=== PATIENT | female | born 1965 | race African-American/Black ===

== ENCOUNTER 2017-11-07 12:54 | Inpatient (IN) | payer OTHER ==
[2017-11-07 15:48] VITALS: BMI 21.1
--- NOTE | 2017-11-07 17:50 | HP ---
COWS - Scale Resting Pulse: 0= [place] 80 or Below Sweatin= Chills/Flushing Restless Observation: 3= Extraneous Movement Pupil Size: 0= Normal to Room Light Bone or Joint Aches: 1= Mild Discomfort Runny Nose/ Eye Tearin= Constantly Teary/Runny GI Upset > 30mins: 2= Nausea/Diarrhea Tremor Observation: 2= Slight Tremor Visible Yawning Observation: 0= None Anxiety or Irritability: 2=Irritable/Anxious Goose Flesh Skin: 0=Smooth Skin COWS Score: 15 Admission ROS BHS - HPI Chief Complaint: withdrawal symptoms, "I don't feel well, I want to go to rehab and detox". Allergies/Adverse Reactions: Allergies Allergy/AdvReac Type Severity Reaction Status Date / Time Penicillins Allergy Severe Difficulty Verified 11/07/17 17:34 Breathing History of Present Illness: 52 yo female with hx IV heroin, nicotine, and cocaine dependence is here seeking detox. PMHX: HIV+ reports adherence with HARRT therapy, hx of seizures was on medication which were discontinue a year ago. Denies suicidal / homicidal ideation, reports hx suicide attempt 7 years ago by drinking pills. Reports hx of OD x , March 2017. Longest period sobriety 18 months. Last detox [facility] Jun 2016, last rehab [facility] June 2016. Exam Limitations: No Limitations - Ebola screening Have you traveled outside of the country in the last 21 days: No Have you had contact with anyone from an Ebola affected area: No Have you been sick,other than usual withdrawal symptoms: No - Review of Systems Constitutional: Chills, Loss of Appetite, Changes in sleep, Weakness, Unintentional Wgt. Loss (18 lbs over the past three months) EENT: reports: See HPI, Nose Congestion Respiratory: reports: No Symptoms reported Cardiac: reports: No Symptoms Reported GI: reports: Nausea, Poor Appetite, Poor Fluid Intake, Abdominal cramping : reports: No Symptoms Reported Musculoskeletal: reports: Muscle Pain (both lower extremties) Integumentary: reports: No Symptoms Reported Neuro: reports: Numbness (b/t hands), Tingling Endocrine: reports: Unexplained Weight Loss Hematology: reports: Anemia Psychiatric: reports: Orientated x3, Anxious Other Systems: Reviewed and Negative Patient History - Patient Medical History Hx Anemia: Yes (NO MEDS) Hx Asthma: Yes Hx Chronic Obstructive Pulmonary Disease (COPD): No Hx Cancer: No Hx Cardiac Disorders: No Hx Congestive Heart Failure: No Hx Hypertension: No Hx Hypercholesterolemia: No Hx Pacemaker: No HX Cerebrovascular Accident: No Hx Seizures: Yes (hx of seizure disorder last more than a year ago.) Hx Dementia: No Hx Diabetes: No Hx Gastrointestinal Disorders: No Hx Liver Disease: Yes (Hep C, tx with [place] ) Hx Genitourinary Disorders: No Hx Sexually Transmitted Disorders: No Hx Renal Disease (ESRD): No Hx Thyroid Disease: No Hx Human Immunodeficiency Virus (HIV): Yes (SINCE 2013;ON REYATAZ/DISCOVY/ NORVIR DAILY) Hx Hepatitis C: Yes (COMPLETED HAVONI [place]) Hx Depression: Yes Hx Suicide Attempt: Yes (Tried to overdose in 2010) Hx Bipolar Disorder: No Hx Schizophrenia: No - Patient Surgical History Past Surgical History: Yes Other Surgical History: RIGHT ARM DUE TO ABCESS Anesthesia Reaction: No - PPD History Previous Implant?: Yes Documented Results: Negative w/o proof Implanted On Prior [facility] Admission?: Yes Results: TO BE DONE PPD to be Administered?: Yes - Reproductive History Patient is a Female of Child Bearing Age (11 -55 yrs old): No Last Menstrual Period: 10/30/17 Patient : No - Smoking Cessation Smoking history: Current every day smoker Have you smoked in the past 12 months: Yes Aproximately how many cigarettes per day: 10 Hx Chewing Tobacco Use: No Initiated information on smoking cessation: Yes 'Breaking Loose' booklet given: 11/07/17 - Substance & Tx. History Hx Alcohol Use: No Hx Substance Use: Yes Substance Use Type: Cocaine, Heroin Hx Substance Use Treatment: Yes - Substances Abused Heroin Route: Injection Frequency: Daily Amount used: 5 bags Age of first use: 26 Date of Last Use: 11/07/17 Cocaine Route: Smoking Frequency: Daily Amount used: $20 Age of first use: 26 Date of Last Use: 11/06/17 Family Disease History - Family Disease History Family Disease History: Diabetes: Mother (HTN), Other: Father (HTN-), Mother Admission Physical Exam BHS - Vital Signs Vital Signs: Vital Signs - 24 hr 11/07/17 15:42 Pulse Rate 78 Respiratory 16 Rate Blood Pressure 123/74 - Physical General Appearance: Yes: Appropriately Dressed, Mild Distress, Thin, Sweating, Anxious HEENTM: Yes: Hearing grossly Normal, Normal ENT Inspection, Normocephalic, Normal Voice, EULALIO, Pharynx Normal, Rhinorrhea Respiratory: Yes: Chest Non-Tender, Lungs Clear, Normal Breath Sounds, No Respiratory Distress, No Accessory Muscle Use Neck: Yes: No masses,lesions,Nodules, Trachea in good position Breast: Yes: Breast Exam Deferred Cardiology: Yes: Regular Rhythm, Regular Rate Abdominal: Yes: Normal Bowel Sounds, Non Tender, Flat, Soft Genitourinary: Yes: Within Normal Limits Back: Yes: Normal Inspection Musculoskeletal: Yes: Muscle Pain (b/t lower extremties) Extremities: Yes: Normal Capillary Refill, Normal Inspection, Normal Range of Motion, Non-Tender Neurological: Yes: boiler welder II-XII NML intact, Fully Oriented, Alert, Motor Strength 5/5, Normal Response, Depressed Affect Integumentary: Yes: Normal Color, Dry, Warm, Other (poor skin turgor) Lymphatic: Yes: Within Normal Limits - Diagnostic (1) History of seizure Current Visit: Yes Status: Chronic (2) Abdominal cramping Current Visit: Yes Status: Acute (3) Dehydration Current Visit: Yes Status: Acute (4) Weight loss Current Visit: Yes Status: Acute (5) Asthma Current Visit: Yes Status: Chronic Qualifiers: Asthma severity: mild Asthma complication type: uncomplicated (6) Cocaine dependence, uncomplicated Current Visit: Yes Status: Chronic (7) HIV (human immunodeficiency virus infection) Current Visit: Yes Status: Chronic (8) Opioid dependence with withdrawal Current Visit: Yes Status: Acute (9) History of anemia Current Visit: Yes Status: Suspected (10) IV drug abuse Current Visit: Yes Status: Chronic Cleared for Admission [facility] - Detox or Rehab [facility] Level of Care: Medically Managed Detox Regimen/Protocol: Methadone [facility] Breath Alcohol Content Breath Alcohol Content: 0 Urine Pregancy Test - Result Urine Test Results: Negative- NO Line Present Urine Drug Screen - Results Drug Screen Negative: No Urine Drug Screen Results: TOREY-Cocaine, AMP-Amphetamines, OXY-Oxycodone
[2017-11-07] MEDS ORDERED: MENTHOL/PHENOL 1 EACH UD MM PRN (17:56)
[2017-11-07] MEDS ORDERED: NICOTINE POLACRILEX 2 MG GUM BC PRN (17:56)
[2017-11-07] MEDS ORDERED: MAG HYDROX/AL HYDROX/SIMETH 30 ML UNIT-DOSE CUP PO PRN (17:56)
[2017-11-07] MEDS ORDERED: MAGNESIUM HYDROX 2400MG/30ML ORAL SUSPENSION 30 ML CUP PO PRN (17:56)
[2017-11-07] MEDS ORDERED: guaiFENesin/D-METHORPHAN HB 10 ML UNIT-DOSE CUPS PO PRN (17:56)
[2017-11-07] MEDS ORDERED: ACETAMINOPHEN 325 MG TABLET (FP) PO PRN (17:56)
[2017-11-07] MEDS ORDERED: MAGNESIUM CITRATE 300 ML BOTTLE PO PRN (17:56)
[2017-11-07] MEDS ORDERED: P-EPHED 60MG/TRIPROLIDI 2.5MG TABLET PO PRN (17:56)
[2017-11-07] MEDS ORDERED: ALBUTEROL SO4 18 GM HFA INHALER IH PRN (17:59)
[2017-11-07] MEDS ORDERED: METHADONE HCL 10 MG TABLET (FOR DETOX USE ONLY) PO ONE ×2 (18:30→23:00)
[2017-11-07] MEDS: diazePAM 5 MG TABLET PO PRN (21:36)
[2017-11-07] MEDS: THIAMINE HCL 100 MG TABLET (FP) PO SCH (21:41)
[2017-11-07 22:59] LABS: URINE APPEARANCE CLEAR; URINE BILIRUBIN NEGATIVE (NEGATIVE); URINE BLOOD NEGATIVE (NEGATIVE); URINE COLOR LTYELLOW; URINE GLUCOSE (UA) NEGATIVE (NEGATIVE); URINE KETONE NEGATIVE (NEGATIVE); URINE LEUK ESTERASE NEGATIVE (NEGATIVE); URINE NITRITE NEGATIVE (NEGATIVE); URINE PROTEIN 1+ (NEGATIVE); URINE UROBILINOGEN NEGATIVE mg/dL (0.2-1.0)
[2017-11-07 23:03] LABS: EPI CELLS RARE /HPF (FEW); URINE BACTERIA RARE /hpf (NONE SEEN)
[2017-11-08] MEDS: EMTRICITABINE/TENOFOV ALAFENAM (DESCOVY) TABLET PO SCH (08:57)
[2017-11-08] MEDS: RITONAVIR 100 MG TABLET PO SCH (08:57)
[2017-11-08] MEDS: ATAZANAVIR SO4 300 MG CAPSULE PO SCH (08:57)
[2017-11-08] MEDS ORDERED: METHADONE HCL 10 MG TABLET (FOR DETOX USE ONLY) PO ONE (10:00)
[2017-11-08] MEDS: PRENATAL VITAMINS W/ FOLIC ACID TABLET (FP) PO SCH (10:26)
[2017-11-08] MEDS: NICOTINE 14 MG/24 HOURS TOPICAL PATCH TD SCH (10:26)
[2017-11-08 10:34] LABS: HEMATOCRIT 38.8 % (32.4-45.2); HEMOGLOBIN 13.5 GM/dL (10.7-15.3); MCH 27.4 pg (25.7-33.7); MCHC 34.8 g/dl (32.0-36.0); MEAN CELL VOLUME 78.6 fl (80-96); PLATELET COUNT 227 K/MM3 (134-434); RBC 4.93 M/mm3 (3.60-5.2); WHITE BLOOD COUNT 7.6 K/mm3 (4.0-10.0)
[2017-11-08 10:40] LABS: ALBUMIN 3.9 g/dl (3.4-5.0); ANION GAP 7 (8-16); BLOOD UREA NITROGEN 16 mg/dL (7-18); CALCIUM 8.7 mg/dL (8.5-10.1); CHLORIDE 107 mmol/L (98-107); CO2 25 mmol/L (21-32); GLUCOSE,RANDOM 68 mg/dL (74-106); POTASSIUM 3.9 mmol/L (3.5-5.1); SGPT/ALT 15 U/L (12-78); SODIUM 139 mmol/L (136-145)
[2017-11-08 10:44] LABS: ALK PHOS 94 U/L (45-117); BILIRUBIN,TOTAL 2.3 mg/dL (0.2-1.0); SGOT/AST 19 U/L (15-37); TOT PROT 8.7 g/dl (6.4-8.2)
--- NOTE | 2017-11-08 16:55 | PN ---
[facility] CIWA - CIWA Score Nausea/Vomitin Muscle Tremors: 3 Anxiety: 3 Agitation: 3 Paroxysmal Sweats: 3 Orientation: 0-Oriented Tacttile Disturbances: 0-None Auditory Disturbances: 0-None Visual Disturbances: 0-None Headache: 0-None Present CIWA-Ar Total Score: 15 S Progress Note (SOAP) Subjective: sweats shakes sleep disturbance Objective: 11/08/17 16:53 A & O x 3 no acute distress Vital Signs Temperature 98.2 F 11/08/17 14:34 Pulse Rate 68 11/08/17 14:34 Respiratory Rate 18 11/08/17 14:34 Blood Pressure 108/69 11/08/17 14:34 O2 Sat by Pulse Oximetry (%) Laboratory Last Values WBC 7.6 K/mm3 (4.0-10.0) 11/08/17 08:00 RBC 4.93 M/mm3 (3.60-5.2) 11/08/17 08:00 Hgb 13.5 GM/dL (10.7-15.3) 11/08/17 08:00 Hct 38.8 % (32.4-45.2) 11/08/17 08:00 MCV 78.6 fl (80-96) L 11/08/17 08:00 MCH 27.4 pg (25.7-33.7) 11/08/17 08:00 MCHC 34.8 g/dl (32.0-36.0) 11/08/17 08:00 RDW 17.0 % (11.6-15.6) H 11/08/17 08:00 Plt Count 227 K/MM3 (134-434) D 11/08/17 08:00 MPV 10.0 fl (7.5-11.1) 11/08/17 08:00 Sodium 139 mmol/L (136-145) 11/08/17 08:00 Potassium 3.9 mmol/L (3.5-5.1) 11/08/17 08:00 Chloride 107 mmol/L (98-107) 11/08/17 08:00 Carbon Dioxide 25 mmol/L (21-32) 11/08/17 08:00 Anion Gap 7 (8-16) L 11/08/17 08:00 BUN 16 mg/dL (7-18) 11/08/17 08:00 Creatinine 1.0 mg/dL (0.55-1.02) 11/08/17 08:00 Creat Clearance w eGFR 58.22 (>60) 11/08/17 08:00 Random Glucose 68 mg/dL (74-106) L 11/08/17 08:00 Calcium 8.7 mg/dL (8.5-10.1) 11/08/17 08:00 Total Bilirubin 2.3 mg/dL (0.2-1.0) H D 11/08/17 08:00 AST 19 U/L (15-37) 11/08/17 08:00 ALT 15 U/L (12-78) 11/08/17 08:00 Alkaline Phosphatase 94 U/L (45-117) 11/08/17 08:00 Total Protein 8.7 g/dl (6.4-8.2) H 11/08/17 08:00 Albumin 3.9 g/dl (3.4-5.0) 11/08/17 08:00 Urine Color Ltyellow 11/07/17 22:50 Urine Appearance Clear 11/07/17 22:50 Urine pH 5.0 (5.0-8.0) D 11/07/17 22:50 Ur Specific [place] 1.015 (1.001-1.035) 11/07/17 22:50 Urine Protein 1+ (NEGATIVE) H 11/07/17 22:50 Urine Glucose (UA) Negative (NEGATIVE) 11/07/17 22:50 Urine Ketones Negative (NEGATIVE) 11/07/17 22:50 Urine Blood Negative (NEGATIVE) 11/07/17 22:50 Urine Nitrite Negative (NEGATIVE) 11/07/17 22:50 Urine Bilirubin Negative (NEGATIVE) 11/07/17 22:50 Urine Urobilinogen Negative mg/dL (0.2-1.0) 11/07/17 22:50 Ur Leukocyte Esterase Negative (NEGATIVE) 11/07/17 22:50 Urine WBC (Auto) 1 /hpf (3-5) 11/07/17 22:50 Urine RBC (Auto) <1 /hpf (0-3) 11/07/17 22:50 Ur Epithelial Cells Rare /HPF (FEW) 11/07/17 22:50 Urine Bacteria Rare /hpf (NONE SEEN) 03/09/18 22:50 RPR Titer Nonreactive (NONREACTIVE) 11/08/17 08:00 labs noted Assessment: 11/08/17 16:54 withdrawal sx Plan: continue detox
--- NOTE | 2017-11-08 17:02 | CONSULT ---
[facility] Psychiatric Consult - Data Date of interview: 11/08/17 Admission source: [facility] Identifying data: Readmission to [facility] for this 52 y/o AA female seeking detox treatment on for cocaine and heroin dependence.Patient is single, a mother of three,homeless,unemployed and deprived of income (supported by relatives). Substance Abuse History: Discussed with patient in this interview.Ms Hinds admits todaily use of cocaine and heroin.Years of abuse as accurately detailed in the current [facility] report : Smoking history: Current every day smoker. Have you smoked in the past 12 months: Yes. Aproximately how many cigarettes per day : 10. Hx Chewing Tobacco Use: No. Initiated information on smoking cessation: Yes. 'Breaking Loose' booklet given: 11/07/17. - Substance & Tx. History. Hx Alcohol Use: No. Hx Substance Use: Yes. Substance Use Type: Cocaine, Heroin. Hx Substance Use Treatment: Yes. - Substances Abused. Heroin. Route: Injection. Frequency: Daily. Amount used: 5 bags. Age of first use: 26. Date of Last Use: 11/07/17. Cocaine. Route: Smoking. Frequency: Daily. Amount used: $20. Age of first use: 26. Date of Last Use: 11/06/17 Medical History: Anemia,bronchial asthma,antecedent of withdrawal-related seizures,hepatitis C and HIV infection since 2013 (on ART medications). Psychiatric History: Onset of psychiaric disturbances ((age 15) : auditory / visual hallucinations and behavioral dyscontrol.Diagnosed with Schizoaffective Disorder.Patient presents with a history of multiple psychiatric hospitalizations,mostly at [facility] in [facility].Ms Hinds used to see a private psychiatrist in [facility].She was maintained on a regimen of depakote 500 mg po bid + trazodone 100 mg po hs + invega 25 mg IM every two weeks.Patient declares that she has dropped out of OPD care for past 2 -3 years.Last medicated with invega in 2015.Expresses no interest in getting back on these medications.No connection with mental health providers at this time.Noted self-reported history of a suicide attempt (via overdose with medications) three years ago. Physical/Sexual Abuse/Trauma History: Patient declines to discuss this domain. Additional Comment: Urine Drug Screen Results: TOREY-Cocaine, AMP-Amphetamines, OXY-Oxycodone.Noted. Mental Status Exam - Mental Status Exam Alert and Oriented to: Time, Place, Person Cognitive Function: Grossly Intact Patient Appearance: Unkempt, Disheveled Mood: Nervous, Withdrawn Affect: Mood Congruent Patient Behavior: Fatigued, Appropriate, Cooperative Speech Pattern: Clear, Appropriate Voice Loudness: Normal Thought Process: Goal Oriented Thought Disorder: Not Present Hallucinations: Denies Suicidal Ideation: Denies Homicidal Ideation: Denies Insight/Judgement: Poor Sleep: Poorly, Difficulty falling asleep Appetite: Good Muscle strength/Tone: Normal Gait/Station: Normal Psychiatric Findings - Problem List ([place] 1, 2,3) (1) Opioid dependence with withdrawal Current Visit: Yes Status: Acute (2) Cocaine dependence, uncomplicated Current Visit: Yes Status: Acute (3) Nicotine dependence Current Visit: Yes Status: Acute (4) Substance induced mood disorder Current Visit: Yes Status: Acute (5) Schizoaffective disorder Current Visit: No Status: Chronic Comment: As per records and self- report.Lost to follow-up for 2-3 years.Non compliant with psychotropic medications.Currently asymptomatic. (6) Insomnia Current Visit: Yes Status: Acute - Initial Treatment Plan Initial Treatment Plan: Records are revisited.Psychoeducation and support.Sleep hygiene.Detoxification in progress.Patient has declared her preference for trazodone (to address insomnia).Side effects/benefits discussed with patient.Trazodone 50 mg po hs.Ordered.Patient consents (verbally) to follow this careplan.Observation.
[2017-11-08] MEDS: LOPERAMIDE HCL 2 MG CAPSULE PO PRN (17:36)
[2017-11-08] MEDS: diazePAM 5 MG TABLET PO PRN (22:21)
[2017-11-08] MEDS: traZODone HCL 50 MG TABLET (FP) PO SCH (22:21)
[2017-11-08] MEDS: THIAMINE HCL 100 MG TABLET (FP) PO SCH (22:22)
[2017-11-09] MEDS ORDERED: METHADONE HCL 5 MG TABLET (FOR DETOX USE ONLY) PO ONE (10:00)
[2017-11-09] MEDS: ATAZANAVIR SO4 300 MG CAPSULE PO SCH (11:07)
[2017-11-09] MEDS: RITONAVIR 100 MG TABLET PO SCH (11:07)
[2017-11-09] MEDS: PRENATAL VITAMINS W/ FOLIC ACID TABLET (FP) PO SCH (11:07)
[2017-11-09] MEDS: EMTRICITABINE/TENOFOV ALAFENAM (DESCOVY) TABLET PO SCH (11:07)
[2017-11-09] MEDS: NICOTINE 14 MG/24 HOURS TOPICAL PATCH TD SCH (11:08)
[2017-11-09] MEDS: IBUPROFEN 400 MG TABLET (FP) PO PRN (11:09)
[2017-11-09] MEDS: diazePAM 5 MG TABLET PO PRN ×3 (12:41→22:51)
--- NOTE | 2017-11-09 13:39 | PN ---
S COWS - Scale Resting Pulse: 0= [place] 80 or Below Sweatin= Chills/Flushing Restless Observation: 1= Difficult to Sit Still Pupil Size: 1= Pupils >than Normal Bone or Joint Aches: 2= Severe Diffuse Aches Runny Nose/ Eye Tearin= Nasal Congestion GI Upset > 30mins: 1= Stomach Cramp Tremor Observation of Outstretched Hands: 1= Tremor [place], Not Seen Yawning Observation: 2= >3x During Session Anxiety or Irritability: 1=Feels Anxious/Irritable Goose Flesh Skin: 3=Piloerection COWS Score: 14 S Progress Note (SOAP) Subjective: sweat restlessness anxiety tremor irritable agitative Objective: 11/09/17 13:42 Vital Signs Temperature 96.1 F L 11/09/17 10:00 Pulse Rate 73 11/09/17 10:00 Respiratory Rate 16 11/09/17 10:00 Blood Pressure 114/72 11/09/17 10:00 O2 Sat by Pulse Oximetry (%) Laboratory Last Values WBC 7.6 K/mm3 (4.0-10.0) 11/08/17 08:00 RBC 4.93 M/mm3 (3.60-5.2) 11/08/17 08:00 Hgb 13.5 GM/dL (10.7-15.3) 11/08/17 08:00 Hct 38.8 % (32.4-45.2) 11/08/17 08:00 MCV 78.6 fl (80-96) L 11/08/17 08:00 MCH 27.4 pg (25.7-33.7) 11/08/17 08:00 MCHC 34.8 g/dl (32.0-36.0) 11/08/17 08:00 RDW 17.0 % (11.6-15.6) H 11/08/17 08:00 Plt Count 227 K/MM3 (134-434) D 11/08/17 08:00 MPV 10.0 fl (7.5-11.1) 11/08/17 08:00 Sodium 139 mmol/L (136-145) 11/08/17 08:00 Potassium 3.9 mmol/L (3.5-5.1) 11/08/17 08:00 Chloride 107 mmol/L (98-107) 11/08/17 08:00 Carbon Dioxide 25 mmol/L (21-32) 11/08/17 08:00 Anion Gap 7 (8-16) L 11/08/17 08:00 BUN 16 mg/dL (7-18) 11/08/17 08:00 Creatinine 1.0 mg/dL (0.55-1.02) 11/08/17 08:00 Creat Clearance w eGFR 58.22 (>60) 11/08/17 08:00 Random Glucose 68 mg/dL (74-106) L 11/08/17 08:00 Calcium 8.7 mg/dL (8.5-10.1) 11/08/17 08:00 Total Bilirubin 2.3 mg/dL (0.2-1.0) H D 11/08/17 08:00 AST 19 U/L (15-37) 11/08/17 08:00 ALT 15 U/L (12-78) 11/08/17 08:00 Alkaline Phosphatase 94 U/L (45-117) 11/08/17 08:00 Total Protein 8.7 g/dl (6.4-8.2) H 11/08/17 08:00 Albumin 3.9 g/dl (3.4-5.0) 11/08/17 08:00 Urine Color Ltyellow 11/07/17 22:50 Urine Appearance Clear 11/07/17 22:50 Urine pH 5.0 (5.0-8.0) D 11/07/17 22:50 Ur Specific [place] 1.015 (1.001-1.035) 11/07/17 22:50 Urine Protein 1+ (NEGATIVE) H 11/07/17 22:50 Urine Glucose (UA) Negative (NEGATIVE) 11/07/17 22:50 Urine Ketones Negative (NEGATIVE) 11/07/17 22:50 Urine Blood Negative (NEGATIVE) 11/07/17 22:50 Urine Nitrite Negative (NEGATIVE) 11/07/17 22:50 Urine Bilirubin Negative (NEGATIVE) 11/07/17 22:50 Urine Urobilinogen Negative mg/dL (0.2-1.0) 11/07/17 22:50 Ur Leukocyte Esterase Negative (NEGATIVE) 11/07/17 22:50 Urine WBC (Auto) 1 /hpf (3-5) 11/07/17 22:50 Urine RBC (Auto) <1 /hpf (0-3) 11/07/17 22:50 Ur Epithelial Cells Rare /HPF (FEW) 11/07/17 22:50 Urine Bacteria Rare /hpf (NONE SEEN) 11/07/17 22:50 RPR Titer Nonreactive (NONREACTIVE) 11/08/17 08:00 lab noted Assessment: 11/09/17 13:42 withdrawal sx Plan: continue detox
[2017-11-09] MEDS: LOPERAMIDE HCL 2 MG CAPSULE PO PRN (19:40)
--- NOTE | 2017-11-09 20:38 | EKG ---
Test Reason : Blood Pressure : / mmHG Vent. Rate : 061 BPM Atrial Rate : 072 BPM P-R Int : 200 ms QRS Dur : 092 ms QT Int : 426 ms P-R-T Axes : 068 070 055 degrees QTc Int : 428 ms SINUS RHYTHM WITH MARKED SINUS ARRHYTHMIA OTHERWISE NORMAL ECG NO PREVIOUS ECGS AVAILABLE Confirmed by ZOYA AGUIRRE, FLIP ([id number]) on 11/09/2017 8:38:09 PM Referred By: Confirmed By:FLIP KENNY MD
[2017-11-09] MEDS: traZODone HCL 50 MG TABLET (FP) PO SCH (22:49)
[2017-11-09] MEDS: THIAMINE HCL 100 MG TABLET (FP) PO SCH (22:49)
[2017-11-10] MEDS: diazePAM 5 MG TABLET PO PRN ×3 (06:21→15:28)
[2017-11-10] MEDS: EMTRICITABINE/TENOFOV ALAFENAM (DESCOVY) TABLET PO SCH (09:00)
[2017-11-10] MEDS: RITONAVIR 100 MG TABLET PO SCH (09:00)
[2017-11-10] MEDS: ATAZANAVIR SO4 300 MG CAPSULE PO SCH (09:00)
[2017-11-10] MEDS ORDERED: METHADONE HCL 5 MG TABLET (FOR DETOX USE ONLY) PO ONE (10:00)
--- NOTE | 2017-11-10 10:16 | PN ---
BHS Progress Note (SOAP) Subjective: general body ache joint pain sweat tremor restlessness sleeplessness anxiety irritable Objective: 11/10/17 10:15 Vital Signs Temperature 97.4 F L 11/10/17 06:30 Pulse Rate 65 11/10/17 06:30 Respiratory Rate 16 11/10/17 06:30 Blood Pressure 119/69 11/10/17 06:30 O2 Sat by Pulse Oximetry (%) Laboratory Last Values WBC 7.6 K/mm3 (4.0-10.0) 11/08/17 08:00 RBC 4.93 M/mm3 (3.60-5.2) 11/08/17 08:00 Hgb 13.5 GM/dL (10.7-15.3) 11/08/17 08:00 Hct 38.8 % (32.4-45.2) 11/08/17 08:00 MCV 78.6 fl (80-96) L 11/08/17 08:00 MCH 27.4 pg (25.7-33.7) 11/08/17 08:00 MCHC 34.8 g/dl (32.0-36.0) 11/08/17 08:00 RDW 17.0 % (11.6-15.6) H 11/08/17 08:00 Plt Count 227 K/MM3 (134-434) D 11/08/17 08:00 MPV 10.0 fl (7.5-11.1) 11/08/17 08:00 Sodium 139 mmol/L (136-145) 11/08/17 08:00 Potassium 3.9 mmol/L (3.5-5.1) 11/08/17 08:00 Chloride 107 mmol/L (98-107) 11/08/17 08:00 Carbon Dioxide 25 mmol/L (21-32) 11/08/17 08:00 Anion Gap 7 (8-16) L 11/08/17 08:00 BUN 16 mg/dL (7-18) 11/08/17 08:00 Creatinine 1.0 mg/dL (0.55-1.02) 11/08/17 08:00 Creat Clearance w eGFR 58.22 (>60) 11/08/17 08:00 Random Glucose 68 mg/dL (74-106) L 11/08/17 08:00 Calcium 8.7 mg/dL (8.5-10.1) 11/08/17 08:00 Total Bilirubin 2.3 mg/dL (0.2-1.0) H D 11/08/17 08:00 AST 19 U/L (15-37) 11/08/17 08:00 ALT 15 U/L (12-78) 11/08/17 08:00 Alkaline Phosphatase 94 U/L (45-117) 11/08/17 08:00 Total Protein 8.7 g/dl (6.4-8.2) H 11/08/17 08:00 Albumin 3.9 g/dl (3.4-5.0) 11/08/17 08:00 Urine Color Ltyellow 11/07/17 22:50 Urine Appearance Clear 11/07/17 22:50 Urine pH 5.0 (5.0-8.0) D 11/07/17 22:50 Ur Specific [place] 1.015 (1.001-1.035) 11/07/17 22:50 Urine Protein 1+ (NEGATIVE) H 11/07/17 22:50 Urine Glucose (UA) Negative (NEGATIVE) 11/07/17 22:50 Urine Ketones Negative (NEGATIVE) 11/07/17 22:50 Urine Blood Negative (NEGATIVE) 11/07/17 22:50 Urine Nitrite Negative (NEGATIVE) 11/07/17 22:50 Urine Bilirubin Negative (NEGATIVE) 11/07/17 22:50 Urine Urobilinogen Negative mg/dL (0.2-1.0) 11/07/17 22:50 Ur Leukocyte Esterase Negative (NEGATIVE) 11/07/17 22:50 Urine WBC (Auto) 1 /hpf (3-5) 11/07/17 22:50 Urine RBC (Auto) <1 /hpf (0-3) 11/07/17 22:50 Ur Epithelial Cells Rare /HPF (FEW) 11/07/17 22:50 Urine Bacteria Rare /hpf (NONE SEEN) 11/07/17 22:50 RPR Titer Nonreactive (NONREACTIVE) 11/08/17 08:00 lab noted Assessment: 11/10/17 10:16 withdrawal sx Plan: continue detox
[2017-11-10] MEDS: PRENATAL VITAMINS W/ FOLIC ACID TABLET (FP) PO SCH (10:44)
[2017-11-10] MEDS: NICOTINE 14 MG/24 HOURS TOPICAL PATCH TD SCH (10:45)
[2017-11-10] MEDS: traZODone HCL 50 MG TABLET (FP) PO SCH (22:30)
[2017-11-10] MEDS: hydrOXYzine PAMOATE 50 MG CAPSULE (FP) PO PRN (22:30)
[2017-11-10] MEDS: THIAMINE HCL 100 MG TABLET (FP) PO SCH (22:30)
[2017-11-11] MEDS: LOPERAMIDE HCL 2 MG CAPSULE PO PRN (07:25)
[2017-11-11] MEDS: hydrOXYzine PAMOATE 50 MG CAPSULE (FP) PO PRN ×2 (07:29→22:21)
[2017-11-11] MEDS: ATAZANAVIR SO4 300 MG CAPSULE PO SCH (08:56)
[2017-11-11] MEDS: EMTRICITABINE/TENOFOV ALAFENAM (DESCOVY) TABLET PO SCH (08:56)
[2017-11-11] MEDS: RITONAVIR 100 MG TABLET PO SCH (08:57)
[2017-11-11] MEDS ORDERED: METHADONE HCL 10 MG TABLET (FOR DETOX USE ONLY) PO ONE (10:00)
[2017-11-11] MEDS: NICOTINE 14 MG/24 HOURS TOPICAL PATCH TD SCH (10:17)
[2017-11-11] MEDS: PRENATAL VITAMINS W/ FOLIC ACID TABLET (FP) PO SCH (10:17)
--- NOTE | 2017-11-11 11:58 | PN ---
S Progress Note (SOAP) Subjective: alert oriented x 3 tolerates food and fluid well, denies pain no tremor less sweat Objective: 11/11/17 11:56 Vital Signs Temperature 98.1 F 11/11/17 10:12 Pulse Rate 79 11/11/17 10:12 Respiratory Rate 18 11/11/17 10:12 Blood Pressure 98/62 11/11/17 10:12 O2 Sat by Pulse Oximetry (%) Laboratory Last Values WBC 7.6 K/mm3 (4.0-10.0) 11/08/17 08:00 RBC 4.93 M/mm3 (3.60-5.2) 11/08/17 08:00 Hgb 13.5 GM/dL (10.7-15.3) 11/08/17 08:00 Hct 38.8 % (32.4-45.2) 11/08/17 08:00 MCV 78.6 fl (80-96) L 11/08/17 08:00 MCH 27.4 pg (25.7-33.7) 11/08/17 08:00 MCHC 34.8 g/dl (32.0-36.0) 11/08/17 08:00 RDW 17.0 % (11.6-15.6) H 11/08/17 08:00 Plt Count 227 K/MM3 (134-434) D 11/08/17 08:00 MPV 10.0 fl (7.5-11.1) 11/08/17 08:00 Sodium 139 mmol/L (136-145) 11/08/17 08:00 Potassium 3.9 mmol/L (3.5-5.1) 11/08/17 08:00 Chloride 107 mmol/L (98-107) 11/08/17 08:00 Carbon Dioxide 25 mmol/L (21-32) 11/08/17 08:00 Anion Gap 7 (8-16) L 11/08/17 08:00 BUN 16 mg/dL (7-18) 11/08/17 08:00 Creatinine 1.0 mg/dL (0.55-1.02) 11/08/17 08:00 Creat Clearance w eGFR 58.22 (>60) 11/08/17 08:00 Random Glucose 68 mg/dL (74-106) L 11/08/17 08:00 Calcium 8.7 mg/dL (8.5-10.1) 11/08/17 08:00 Total Bilirubin 2.3 mg/dL (0.2-1.0) H D 11/08/17 08:00 AST 19 U/L (15-37) 11/08/17 08:00 ALT 15 U/L (12-78) 11/08/17 08:00 Alkaline Phosphatase 94 U/L (45-117) 11/08/17 08:00 Total Protein 8.7 g/dl (6.4-8.2) H 11/08/17 08:00 Albumin 3.9 g/dl (3.4-5.0) 11/08/17 08:00 Urine Color Ltyellow 11/07/17 22:50 Urine Appearance Clear 11/07/17 22:50 Urine pH 5.0 (5.0-8.0) D 11/07/17 22:50 Ur Specific [place] 1.015 (1.001-1.035) 11/07/17 22:50 Urine Protein 1+ (NEGATIVE) H 11/07/17 22:50 Urine Glucose (UA) Negative (NEGATIVE) 11/07/17 22:50 Urine Ketones Negative (NEGATIVE) 11/07/17 22:50 Urine Blood Negative (NEGATIVE) 11/07/17 22:50 Urine Nitrite Negative (NEGATIVE) 11/07/17 22:50 Urine Bilirubin Negative (NEGATIVE) 11/07/17 22:50 Urine Urobilinogen Negative mg/dL (0.2-1.0) 11/07/17 22:50 Ur Leukocyte Esterase Negative (NEGATIVE) 11/07/17 22:50 Urine WBC (Auto) 1 /hpf (3-5) 11/07/17 22:50 Urine RBC (Auto) <1 /hpf (0-3) 11/07/17 22:50 Ur Epithelial Cells Rare /HPF (FEW) 11/07/17 22:50 Urine Bacteria Rare /hpf (NONE SEEN) 11/07/17 22:50 RPR Titer Nonreactive (NONREACTIVE) 11/08/17 08:00 lab noted Assessment: 11/11/17 11:55 mild withdrawal sx Plan: medically supervised detox
[2017-11-11] MEDS: IBUPROFEN 400 MG TABLET (FP) PO PRN (19:00)
[2017-11-11] MEDS ORDERED: DIPHENOXYLATE 2.5/ATROPINE.025 1 COMBO TABLET PO ONE (21:45)
--- NOTE | 2017-11-11 21:48 | PN ---
[facility] Progress Note Note: Patient c/o diarrhea x 2 days. Vital Signs Temperature 97.3 F L 11/11/17 18:08 Pulse Rate 75 11/11/17 18:08 Respiratory Rate 18 11/11/17 18:08 Blood Pressure 95/56 11/11/17 18:08 O2 Sat by Pulse Oximetry (%) Laboratory Last Values WBC 7.6 K/mm3 (4.0-10.0) 11/08/17 08:00 RBC 4.93 M/mm3 (3.60-5.2) 11/08/17 08:00 Hgb 13.5 GM/dL (10.7-15.3) 11/08/17 08:00 Hct 38.8 % (32.4-45.2) 11/08/17 08:00 MCV 78.6 fl (80-96) L 11/08/17 08:00 MCH 27.4 pg (25.7-33.7) 11/08/17 08:00 MCHC 34.8 g/dl (32.0-36.0) 11/08/17 08:00 RDW 17.0 % (11.6-15.6) H 11/08/17 08:00 Plt Count 227 K/MM3 (134-434) D 11/08/17 08:00 MPV 10.0 fl (7.5-11.1) 11/08/17 08:00 Sodium 139 mmol/L (136-145) 11/08/17 08:00 Potassium 3.9 mmol/L (3.5-5.1) 11/08/17 08:00 Chloride 107 mmol/L (98-107) 11/08/17 08:00 Carbon Dioxide 25 mmol/L (21-32) 11/08/17 08:00 Anion Gap 7 (8-16) L 11/08/17 08:00 BUN 16 mg/dL (7-18) 11/08/17 08:00 Creatinine 1.0 mg/dL (0.55-1.02) 11/08/17 08:00 Creat Clearance w eGFR 58.22 (>60) 11/08/17 08:00 Random Glucose 68 mg/dL (74-106) L 11/08/17 08:00 Calcium 8.7 mg/dL (8.5-10.1) 11/08/17 08:00 Total Bilirubin 2.3 mg/dL (0.2-1.0) H D 11/08/17 08:00 AST 19 U/L (15-37) 11/08/17 08:00 ALT 15 U/L (12-78) 11/08/17 08:00 Alkaline Phosphatase 94 U/L (45-117) 11/08/17 08:00 Total Protein 8.7 g/dl (6.4-8.2) H 11/08/17 08:00 Albumin 3.9 g/dl (3.4-5.0) 11/08/17 08:00 Urine Color Ltyellow 11/07/17 22:50 Urine Appearance Clear 11/07/17 22:50 Urine pH 5.0 (5.0-8.0) D 11/07/17 22:50 Ur Specific [place] 1.015 (1.001-1.035) 11/07/17 22:50 Urine Protein 1+ (NEGATIVE) H 11/07/17 22:50 Urine Glucose (UA) Negative (NEGATIVE) 11/07/17 22:50 Urine Ketones Negative (NEGATIVE) 11/07/17 22:50 Urine Blood Negative (NEGATIVE) 11/07/17 22:50 Urine Nitrite Negative (NEGATIVE) 11/07/17 22:50 Urine Bilirubin Negative (NEGATIVE) 11/07/17 22:50 Urine Urobilinogen Negative mg/dL (0.2-1.0) 11/07/17 22:50 Ur Leukocyte Esterase Negative (NEGATIVE) 11/07/17 22:50 Urine WBC (Auto) 1 /hpf (3-5) 11/07/17 22:50 Urine RBC (Auto) <1 /hpf (0-3) 11/07/17 22:50 Ur Epithelial Cells Rare /HPF (FEW) 11/07/17 22:50 Urine Bacteria Rare /hpf (NONE SEEN) 11/07/17 22:50 RPR Titer Nonreactive (NONREACTIVE) 11/08/17 08:00 Patient AO x 3 self directing, in no apparent distress No abdominal pain Plan: Increase fluids Lomotil once order Continue to monitor
[2017-11-11] MEDS: THIAMINE HCL 100 MG TABLET (FP) PO SCH (22:21)
[2017-11-11] MEDS: traZODone HCL 50 MG TABLET (FP) PO SCH (22:22)
[2017-11-12] MEDS ORDERED: METHADONE HCL 5 MG TABLET (FOR DETOX USE ONLY) PO ONE (06:00)
[2017-11-12] MEDS: hydrOXYzine PAMOATE 50 MG CAPSULE (FP) PO PRN (06:46)
--- NOTE | 2017-11-12 08:29 | PN ---
[facility] Progress Note (SOAP) Subjective: denies pain no diarrhea throughout the night, tolerates food and fluid well 90% breakfast ambulating steady gait, denies weakness denies dizziness, no shortness of breath Objective: 11/12/17 08:27 Vital Signs Temperature 98.1 F 11/12/17 06:26 Pulse Rate 68 11/12/17 06:26 Respiratory Rate 18 11/12/17 06:26 Blood Pressure 101/58 11/12/17 06:26 O2 Sat by Pulse Oximetry (%) Laboratory Last Values WBC 7.6 K/mm3 (4.0-10.0) 11/08/17 08:00 RBC 4.93 M/mm3 (3.60-5.2) 11/08/17 08:00 Hgb 13.5 GM/dL (10.7-15.3) 11/08/17 08:00 Hct 38.8 % (32.4-45.2) 11/08/17 08:00 MCV 78.6 fl (80-96) L 11/08/17 08:00 MCH 27.4 pg (25.7-33.7) 11/08/17 08:00 MCHC 34.8 g/dl (32.0-36.0) 11/08/17 08:00 RDW 17.0 % (11.6-15.6) H 11/08/17 08:00 Plt Count 227 K/MM3 (134-434) D 11/08/17 08:00 MPV 10.0 fl (7.5-11.1) 11/08/17 08:00 Sodium 139 mmol/L (136-145) 11/08/17 08:00 Potassium 3.9 mmol/L (3.5-5.1) 11/08/17 08:00 Chloride 107 mmol/L (98-107) 11/08/17 08:00 Carbon Dioxide 25 mmol/L (21-32) 11/08/17 08:00 Anion Gap 7 (8-16) L 11/08/17 08:00 BUN 16 mg/dL (7-18) 11/08/17 08:00 Creatinine 1.0 mg/dL (0.55-1.02) 11/08/17 08:00 Creat Clearance w eGFR 58.22 (>60) 11/08/17 08:00 Random Glucose 68 mg/dL (74-106) L 11/08/17 08:00 Calcium 8.7 mg/dL (8.5-10.1) 11/08/17 08:00 Total Bilirubin 2.3 mg/dL (0.2-1.0) H D 11/08/17 08:00 AST 19 U/L (15-37) 11/08/17 08:00 ALT 15 U/L (12-78) 11/08/17 08:00 Alkaline Phosphatase 94 U/L (45-117) 11/08/17 08:00 Total Protein 8.7 g/dl (6.4-8.2) H 11/08/17 08:00 Albumin 3.9 g/dl (3.4-5.0) 11/08/17 08:00 Urine Color Ltyellow 11/07/17 22:50 Urine Appearance Clear 11/07/17 22:50 Urine pH 5.0 (5.0-8.0) D 11/07/17 22:50 Ur Specific [place] 1.015 (1.001-1.035) 11/07/17 22:50 Urine Protein 1+ (NEGATIVE) H 11/07/17 22:50 Urine Glucose (UA) Negative (NEGATIVE) 11/07/17 22:50 Urine Ketones Negative (NEGATIVE) 11/07/17 22:50 Urine Blood Negative (NEGATIVE) 11/07/17 22:50 Urine Nitrite Negative (NEGATIVE) 11/07/17 22:50 Urine Bilirubin Negative (NEGATIVE) 11/07/17 22:50 Urine Urobilinogen Negative mg/dL (0.2-1.0) 11/07/17 22:50 Ur Leukocyte Esterase Negative (NEGATIVE) 11/07/17 22:50 Urine WBC (Auto) 1 /hpf (3-5) 11/07/17 22:50 Urine RBC (Auto) <1 /hpf (0-3) 11/07/17 22:50 Ur Epithelial Cells Rare /HPF (FEW) 11/07/17 22:50 Urine Bacteria Rare /hpf (NONE SEEN) 11/07/17 22:50 RPR Titer Nonreactive (NONREACTIVE) 11/08/17 08:00 lab noted Assessment: 11/12/17 08:27 completed detox regimen S1S2 lung clear bilaterally abdomen non tender soft +[id number] Plan: aftercare [facility] in patient rehab
--- NOTE | 2017-11-12 08:32 | DS ---
[facility] Detox Discharge Summary Admission Date: 11/07/17 Discharge Date: 11/12/17 - History Present History: Opioid Dependence Additional Comments: patient admitted 11/07/17 for opiate detox, completed detox regimen today, cardiac S1S2 lung clear bilaterally abdomen soft non tender, [facility] per counselor arranged - Physical Exam Results Vital Signs: Vital Signs Temperature 98.1 F 11/12/17 06:26 Pulse Rate 68 11/12/17 06:26 Respiratory Rate 18 11/12/17 06:26 Blood Pressure 101/58 11/12/17 06:26 O2 Sat by Pulse Oximetry (%) Pertinent Admission Physical Exam Findings: withdrawal sx Vital Signs Temperature 98.1 F 11/12/17 06:26 Pulse Rate 68 11/12/17 06:26 Respiratory Rate 18 11/12/17 06:26 Blood Pressure 101/58 11/12/17 06:26 O2 Sat by Pulse Oximetry (%) Laboratory Last Values WBC 7.6 K/mm3 (4.0-10.0) 11/08/17 08:00 RBC 4.93 M/mm3 (3.60-5.2) 11/08/17 08:00 Hgb 13.5 GM/dL (10.7-15.3) 11/08/17 08:00 Hct 38.8 % (32.4-45.2) 11/08/17 08:00 MCV 78.6 fl (80-96) L 11/08/17 08:00 MCH 27.4 pg (25.7-33.7) 11/08/17 08:00 MCHC 34.8 g/dl (32.0-36.0) 11/08/17 08:00 RDW 17.0 % (11.6-15.6) H 11/08/17 08:00 Plt Count 227 K/MM3 (134-434) D 11/08/17 08:00 MPV 10.0 fl (7.5-11.1) 11/08/17 08:00 Sodium 139 mmol/L (136-145) 11/08/17 08:00 Potassium 3.9 mmol/L (3.5-5.1) 11/08/17 08:00 Chloride 107 mmol/L (98-107) 11/08/17 08:00 Carbon Dioxide 25 mmol/L (21-32) 11/08/17 08:00 Anion Gap 7 (8-16) L 11/08/17 08:00 BUN 16 mg/dL (7-18) 11/08/17 08:00 Creatinine 1.0 mg/dL (0.55-1.02) 11/08/17 08:00 Creat Clearance w eGFR 58.22 (>60) 11/08/17 08:00 Random Glucose 68 mg/dL (74-106) L 11/08/17 08:00 Calcium 8.7 mg/dL (8.5-10.1) 11/08/17 08:00 Total Bilirubin 2.3 mg/dL (0.2-1.0) H D 11/08/17 08:00 AST 19 U/L (15-37) 11/08/17 08:00 ALT 15 U/L (12-78) 11/08/17 08:00 Alkaline Phosphatase 94 U/L (45-117) 11/08/17 08:00 Total Protein 8.7 g/dl (6.4-8.2) H 11/08/17 08:00 Albumin 3.9 g/dl (3.4-5.0) 11/08/17 08:00 Urine Color Ltyellow 11/07/17 22:50 Urine Appearance Clear 11/07/17 22:50 Urine pH 5.0 (5.0-8.0) D 11/07/17 22:50 Ur Specific [place] 1.015 (1.001-1.035) 11/07/17 22:50 Urine Protein 1+ (NEGATIVE) H 11/07/17 22:50 Urine Glucose (UA) Negative (NEGATIVE) 11/07/17 22:50 Urine Ketones Negative (NEGATIVE) 11/07/17 22:50 Urine Blood Negative (NEGATIVE) 11/07/17 22:50 Urine Nitrite Negative (NEGATIVE) 11/07/17 22:50 Urine Bilirubin Negative (NEGATIVE) 11/07/17 22:50 Urine Urobilinogen Negative mg/dL (0.2-1.0) 11/07/17 22:50 Ur Leukocyte Esterase Negative (NEGATIVE) 11/07/17 22:50 Urine WBC (Auto) 1 /hpf (3-5) 11/07/17 22:50 Urine RBC (Auto) <1 /hpf (0-3) 11/07/17 22:50 Ur Epithelial Cells Rare /HPF (FEW) 11/07/17 22:50 Urine Bacteria Rare /hpf (NONE SEEN) 11/07/17 22:50 RPR Titer Nonreactive (NONREACTIVE) 11/08/17 08:00 lab noted - Treatment Hospital Course: Detox Protocol Followed, Detoxed Safely, Responded well, Discharged Condition Good, Rehab Referral Accepted Patient has Accepted a Re[facility] Referral to: [facility] - Medication Discharge Medications: Ambulatory Orders Atazanavir [Reyataz -] 300 mg PO DAILY 06/17/16 Emtricitabine/Tenofov Alafenam [Descovy 200-25 mg Tablet (Nf)] 1 each PO DAILY 11/07/17 Trazodone HCl 50 mg PO HS #30 tablet 11/08/17 Albuterol Sulfate Inhaler - [Ventolin HFA Inhaler -] 2 inh PO Q4H PRN #1 inhaler 11/12/17 Ritonavir [Norvir -] 100 mg PO DAILY #30 tab 11/12/17 - Diagnosis (1) Opioid dependence with withdrawal Current Visit: Yes Status: Acute (2) Asthma Current Visit: Yes Status: Chronic Qualifiers: Asthma severity: mild Asthma persistence: intermittent Asthma complication type: uncomplicated Qualified Code(s): J45.20 - Mild intermittent asthma, uncomplicated (3) HIV (human immunodeficiency virus infection) Current Visit: Yes Status: Chronic - AMA Did Patient Leave Against Medical Advice: No
[2017-11-12] MEDS: ATAZANAVIR SO4 300 MG CAPSULE PO SCH (09:00)
[2017-11-12] MEDS: RITONAVIR 100 MG TABLET PO SCH (09:00)
[2017-11-12] MEDS: EMTRICITABINE/TENOFOV ALAFENAM (DESCOVY) TABLET PO SCH (09:00)
[2017-11-12] MEDS: NICOTINE 14 MG/24 HOURS TOPICAL PATCH TD SCH (10:49)
[2017-11-12] MEDS: PRENATAL VITAMINS W/ FOLIC ACID TABLET (FP) PO SCH (10:49)
[2017-11-12 10:52] VITALS: BP 114/61; PULSE 81; TEMP 98.6
== END 2017-11-12 11:45 | disposition other institution (70) | DRG 773 ==
LOC: YASAS 12:54 → Y6N 17:47
PROVIDERS: ADMIT Internal Medicine; ATTEND Internal Medicine
PROC: HZ2ZZZZ Detoxification Services for Substance Abuse Treatment (ICD-10-PCS; principal; 2017-11-07)
DX: F11.23 Opioid dependence with withdrawal (principal); F14.20 Cocaine dependence, uncomplicated; F17.210 Nicotine dependence, cigarettes, uncomplicated; F19.24 Other psychoactive substance dependence with psychoactive substance-induced mood disorder; F25.9 Schizoaffective disorder, unspecified; J45.20 Mild intermittent asthma, uncomplicated; G47.00 Insomnia, unspecified; E86.0 Dehydration; R10.9 Unspecified abdominal pain; Z88.0 Allergy status to penicillin; Z86.69 Personal history of other diseases of the nervous system and sense organs; Z87.898 Personal history of other specified conditions
CPT/HCPCS: 36415; 80053; 81003; 81015; 85027; 86593; 93005; 93010